=== PATIENT | male | born 1985 | race Caucasian/White ===

== ENCOUNTER 2019-05-08 22:15 | Emergency (ER) | payer SELFPAY ==
[2019-05-08] MEDS: LORAZEPAM 1 MG TAB PO (23:50)
== END 2019-05-09 00:45 | disposition home or self-care (01) ==
LOC: E/R 05-09 00:45
DX: F41.9 Anxiety disorder, unspecified (principal); T43.205A Adverse effect of unspecified antidepressants, initial encounter
CPT/HCPCS: 99283